=== PATIENT | female | born 1980 | race African-American/Black ===

== ENCOUNTER 2020-11-11 22:24 | Emergency (ER) | payer MEDICAID ==
[~2020-11-11] VITALS: Ht 172.7 cm; Wt 125.0 kg
[2020-11-12 00:25] LABS: EOSINOPHILS % 1.6 % (0.0-5.0); HEMOGLOBIN. 12.3 g/dL (12.0-16.0); LYMPHOCYTES % 52.6 % (20.0-50.0); MEAN CORPUSCULAR HEMOGLOBIN 26.6 pg (28.0-32.0); MEAN CORPUSCULAR VOLUME 79.9 fL (81.0-99.0); MEAN PLATELET VOLUME 9.6 fl (7.4-10.4); MONOCYTES % 6.9 % (2.0-8.0); NEUTROPHILS % 37.9 % (40.0-76.0); PLATELET 190 x1000/uL (130-400); RED BLOOD CELL COUNT 4.63 mill/uL (4.2-5.4); RED CELL DISTRIBUTION WIDTH 17.5 % (11.6-14.6)
[2020-11-12 00:30] LABS: CHLORIDE 107 mEq/L (98-107)
[2020-11-12] MEDS ORDERED: IBUPROFEN 600MG TABLET PO ONE (00:45)
[2020-11-12] MEDS ORDERED: ACETAMINOPHEN 325MG TABLET PO ONE (03:00)
[2020-11-12 03:30] VITALS: BP 130/79
== END 2020-11-12 03:55 | disposition home or self-care (01) ==
LOC: ER 22:24
DX: R07.9 Chest pain, unspecified (principal)
CPT/HCPCS: 36415; 71045; 80053; 81025; 83880; 84484; 85025; 99284

== ENCOUNTER 2021-03-22 20:26 | Emergency (ER) | payer MEDICAID ==
[~2021-03-22] VITALS: Ht 170.2 cm; Wt 124.8 kg
[2021-03-22 20:45] VITALS: BP 164/99
== END 2021-03-23 02:06 | disposition left against medical advice (07) ==
LOC: ER 20:26
DX: H92.01 Otalgia, right ear (principal); Z53.21 Procedure and treatment not carried out due to patient leaving prior to being seen by health care provider